=== PATIENT | female | born 2000 | race Caucasian/White ===

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

== ENCOUNTER → 2022-08-27 | Outpatient (CLI) | payer OTHER ==
--- NOTE | 2022-08-28 08:15 | XR ---
EXAMINATION TYPE: XR cervical spine comp DATE OF EXAM: 08/27/2022 COMPARISON: NONE HISTORY: Pain TECHNIQUE: Four views are submitted. FINDINGS: The odontoid is intact. There are no compression deformities. The prevertebral soft tissue structur es are within normal limits. IMPRESSION: 1. No acute process. If symptoms persist recommend MRI.
--- NOTE | 2022-08-28 09:03 | US ---
EXAMINATION TYPE: US mass soft tissue chest/back DATE OF EXAM: 08/27/2022 COMPARISON: NONE CLINICAL INDICATION: Female, 22 years old with history of R22.9 Lump of skin; Superficial palpable ankur mp right upper flank on rib cage x couple months TECHNIQUE AND FINDINGS: [employer]age Tender notes: Scanned right upper flank along rib cage at patient's palpable area - appears wnl IMPRESSION: No discrete sonographic abnormality of the superficial tissues along the patient's palpable site uppe r right flank. Clinical follow-up is recommended. If any enlarging abnormality, the area can be resca nned.
== END | disposition home or self-care (01) ==
LOC: RADUSWWP 15:30
PROVIDERS: ATTEND Family Medicine
DX: R22.1 Localized swelling, mass and lump, neck (principal); R22.2 Localized swelling, mass and lump, trunk
CPT/HCPCS: 72050

== ENCOUNTER 2024-02-15 04:14 | Outpatient (CLI) | payer OTHER ==
[2024-02-15] MEDS ORDERED: PENICILLIN G POTASSIUM 5,000,000 UNIT in DEXTROSE 5% IN WATER 100 ML IVPB STA (04:41)
[2024-02-15] MEDS ORDERED: MAGNESIUM SULFATE-D5W PMX 1 GM in DEXTROSE/WATER 1 100ML.BAG IVPB SCH (04:45)
[2024-02-15] MEDS: BETAMET ACET-BETAMETH SOD PHOS 6 MG/ML MDV IM SCH (04:53)
[2024-02-15] MEDS ORDERED: PENICILLIN G POTASSIUM 2,500,000 UNIT in DEXTROSE 5% IN WATER 100 ML IVPB SCH ×2 (05:00→05:05)
[2024-02-15 05:01] LABS: Basophils % (A) 0 %; Eosinophils # (A) 0.1 k/uL (0-0.7); Eosinophils % (A) 2 %; HCT 38.3 % (34.0-46.0); HGB 12.6 gm/dL (11.4-16.0); Lymphocytes # (A) 1.4 k/uL (1.0-4.8); Lymphocytes % (A) 18 %; MCH 30.4 pg (25.0-35.0); MCHC 32.8 g/dL (31.0-37.0); MCV 92.6 fL (80.0-100.0); Mean Platelet Volume 7.7; Monocytes # (A) 0.5 k/uL (0-1.0); Monocytes % (A) 6 %; Neutrophils % (A) 73 %; Platelet Count 216 k/uL (150-450); RBC 4.13 m/uL (3.80-5.40); RDW 12.4 % (11.5-15.5); WBC 8.1 k/uL (3.8-10.6)
[2024-02-15] MEDS: MAGNESIUM SULFATE MG 6,000 MG in SODIUM CHLORIDE 0.9% 50 ML IVPB ONE (05:01)
[2024-02-15] MEDS: LACTATED RINGERS 1,000 ML IV ONE (05:07)
[2024-02-15] MEDS: PENICILLIN G POTASSIUM 5,000,000 UNIT in DEXTROSE 5% IN WATER 100 ML IVPB STA (05:14)
[2024-02-15] MEDS: MAGNESIUM SULFATE-WATER PMX 20 GM in WATER FOR INJECTION 1 500ML.BAG IV SCH (05:16)
--- NOTE | 2024-02-15 05:51 | P.HPOB ---
History of Present Illness H&P Date: 02/15/24 Chief Complaint: 33 and 1 sevenths weeks, active labor The patient is a 23-year-old 1 para 0 admitted at 33 and 1 sevenths weeks as established by last menstrual period and confirmed by second trimester ultrasound who presents to labor and delivery with cramping after intercourse last night. Upon admission, use if she is found to be jovana approximately 2 to 4 minutes and initial cervical check found her cervix to be 4 cm dilated, 80% effaced, presentation at approximately -2 station. Subsequent bedside hand- held pelvic ultrasound performed by myself demonstrates presentation to be breech with the head in the left upper quadrant. Her to this point has been otherwise uncomplicated. On labor and delivery, she had an IV started with bolus of 6 g of magnesium sulfate to be followed by 2 g/h. She has received her first dose of betamethasone to be repeated in 12 to 24 hours. Antibiotic prophylaxis has been started as well. She has been observed over the course of the last approximately 1 to 1-1/2 hours with a significant diminution of her contraction pattern and the patient reports subjective decrease in cramping and discomfort. Amniotic membranes are intact. heart rate status is category 1. Obstetrical history: 1 para 0 with current statistics listed in history of present illness. EDC of 04/03/2024 was established by last menstrual period and confirmed by second trimester ultrasound. Laboratory workup demonstrates a blood type of a positive with a negative antibody screen. Rubella status is immune. The remainder of her laboratory workup was within normal limits. 1 hour Glucola was elevated and 3-hour glucose tolerance test is pending at this time. Group B strep status is undetermined. Gynecologic history: Unremarkable with no history of any infections to include STDs. Review of Systems Review of systems is confined to history of present illness. Past Medical History Past Medical History: No Reported History Additional Past Medical History / Comment(s): gastritis History of Any Multi-Drug Resistant Organisms: None Reported Past Surgical History: No Surgical Hx Reported Smoking Status: Vaper Medications and Allergies Home Medications Medication Instructions Recorded Confirmed Type Folic Acid 1 tab PO DAILY 02/15/24 02/15/24 History Vit No.179/Iron/Folic 1 tab PO DAILY 02/15/24 02/15/24 History [ Tablet] Allergies Allergy/AdvReac Type Severity Reaction Status Date / Time No Known Allergies Allergy Verified 10/25/17 11:37 Exam Intake and Output 02/14/24 02/14/24 02/15/24 14:59 22:59 06:59 Other: Weight 48.988 kg In general, this is a well-developed, well-nourished white female in occasional discomfort with contractions. Her heart has a regular rhythm and rate without murmur. Her lungs are clear to auscultation bilaterally in all power. Her abdomen is gravid, nondistended, has normal active bowel sounds, soft, nonten sam, and without any palpable masses aside from uterine fundus. Her extremities are without any cyanosis, clubbing, or edema and are nontender to palpation bilaterally. Digital cervical examination performed in serial fashion by the same examiner demonstrates her cervix to be 4 cm dilated, 80% effaced, the presentation at -2 station. Bedside ultrasound demonstrates breech presentation with the head in the left upper quadrant cervical examination has been unchanged over the course of the last hour and a half since initiation of magnesium sulfate. Results Result Diagrams: 02/15/24 04:49 Assessment and Plan (1) with 33 completed weeks gestation Current Visit: Yes Status: Acute Code(s): Z3A.33 - 33 WEEKS GESTATION OF SNOMED Code(s): 35607095 (2) Active labor Current Visit: Yes Status: Acute Code(s): O60.00 - LABOR WITHOUT DELIVERY, UNSPECIFIED TRIMESTER SNOMED Code(s): 4015706 Plan: The patient has been determined to be stable in triage on magnesium sulfate toco lysis over the course of the last 1 to 1-1/2 hours. No cervical change has been documented. She has had antibiotic prophylaxis and steroids administered. The case has been discussed with Dr. Matt Mahmood at [facility]. He has accepted the transfer and we are awaiting transport at this time. She will continue to have close maternal and surveillance. I have discussed with the patient that as she is not currently breech presentation and should delivery be necessary, she will require delivery.
[2024-02-15] MEDS: ONDANSETRON 4 MG/2 ML VIAL IVP STA (06:22)
[2024-02-15 06:41] VITALS: BP 110/69; PULSE 58; RESP 18; TEMP 96.9
== END 2024-02-15 06:25 | disposition other institution (70) ==
LOC: FBPOP 04:14
PROVIDERS: ATTEND Obstetrics & Gynecology
DX: O60.03 Preterm labor without delivery, third trimester (principal); O32.1XX0 Maternal care for breech presentation, not applicable or unspecified; F17.290 Nicotine dependence, other tobacco product, uncomplicated; Z3A.33 33 weeks gestation of pregnancy
CPT/HCPCS: 59025; 96361; 96365; 96366; 96372; 96375; 51701; 84112; 36415; 86900; 86901; 85025; 86850; G0463; J2405; J3475 ×2; J2540; J0702; 99215